=== PATIENT | male | born 1990 | race Caucasian/White ===

== ENCOUNTER 2019-12-26 03:34 | Emergency (ER) | payer SELFPAY ==
[2019-12-26 03:44] VITALS: BP 162/107; PULSE 105; RESP 16; TEMP 37; O2SAT 99; BMI 25.5
--- NOTE | 2019-12-26 03:47 | XRR_ITS ---
PROCEDURE INFORMATION: Exam: XR Right Foot Complete Exam date and time: 12/26/2019 4:02 AM Age: 29 years old Clinical indication: Injury or trauma; Injury history: Kicked box; Initial encounter; Sprain or strain; Foot; Right TECHNIQUE: Imaging protocol: XR Right foot. Views: 3 or more views. COMPARISON: No relevant prior studies available. FINDINGS: Bones/joints: Normal. Soft tissues: Normal. XR/XR foot RT min 3V* [id number] IMPRESSION: No acute findings.
--- NOTE | 2019-12-26 05:24 | PC.NURSE ---
Teaching completed on crutch use and home care of injury. Questions answered, good return demonstration. Patient knows not to drive while on pain medication.
--- NOTE | 2019-12-27 02:30 | ED_ITS ---
HPI - Extremity Problem General: Chief complaint: Extremity Injury, Lower Stated complaint: R FOOT INJURY Time Seen by Provider: 12/26/19 04:21 History of Present Illness: HPI Narrative: 29-year-old male presents after thrusting his foot out to kick something. He is experiencing pain across the dorsum and plantar surface of his midfoot. He complains of swelling as well. MD Complaint: extremity pain and joint pain Onset (ago): hour(s) Pain Consistency: constant Location: right Quality: burning and stabbing Radiation: none Associated symptoms: Deny fever(s) or rash Review of Systems Const: Denies: fever(s) Eyes: Denies: change in vision ENMT: Denies: change in hearing, epistaxis, post nasal drip or sinus pain Card: Reports: swelling of feet/ankles; Denies: irregular heart rhythm, dyspnea on exertion or orthopnea Resp: Denies: dyspnea, productive cough, non-productive cough or wheezing GI: Denies: abdominal pain, nausea or vomiting : Denies: difficulty urinating Musc: Denies: neck pain or back pain Skin/Breast: Denies: rash Neuro: Denies: headache(s) or dizziness Psych: Denies: anxiety PFSH ED PFSH: Social History Smoking and tobacco status: current every day smoker Physical Exam Const: GENERAL APPEARANCE: well developed ORIENTATION/CONSCIOUSNESS: Yes oriented to person, Yes oriented to place and Yes oriented to time HENMT: COMMON NORMALS: normocephalic, external ears normal and Normal external nose present HEAD & SCALP: normocephalic FACE & SINUS: normal facial exam NOSE: Normal external nose present and No nasal discharge present EXTERNAL EAR: Yes external ears normal MOUTH: tongue normal Eye: COMMON NORMALS: Equal, round and reactive pupils present, EOMs intact bilaterally and conjunctivae normal EYELID: eyelids normal CONJUNCTIVA: Yes conjunctivae normal PUPIL: Yes Equal, round and reactive pupils present Neck/C-Spine: GENERAL: No tracheal deviation Chest: COMMONS NORMALS: normal inspection of the chest CHEST: No tenderness Resp: COMMON NORMALS: clear to auscultation bilaterally EFFORT & INSPECTION: No tachypneic, No respiratory distress, No retractions, No uses accessory muscles and No tracheal deviation AUSCULTATION: clear to auscultation bilaterally, no rhonchi, no wheezes and lung sounds not diminished Cardio: COMMON NORMALS: regular rate and regular rhythm RATE: regular rate RHYTHM: regular rhythm HEART SOUNDS: no murmurs PERIPHERAL PULSES: radial pulses present GI: INSPECTION: No abdominal distension AUSCULTATION: No Hyperactive bowel sounds present and No Hypoactive bowel sounds present PALPATION: No Guarding due to palpation present (GI) and No Rigid due to palpation Extremity: NARRATIVE EXTREMITY EXAM: Right glass unloading equipment tender across the dorsum and plantar surface of the midfoot. There is no deformity. There is minimal swelling. No rash. Sensation is intact. Capillary refill is normal. Neuro: SENSORIUM/ORIENTATION: Yes oriented to person, Yes oriented to place and Yes oriented to time Psych: COMMON NORMALS: mental status grossly normal Skin: COMMON NORMALS: no rashes or lesions noted GENERAL SKIN EXAM: no rashes or lesions noted Course Vital Signs: Vital signs: Vital Signs Temperature 98.6 F 12/26/19 03:44 Pulse Rate 105 H 12/26/19 03:44 Respiratory Rate 16 12/26/19 03:44 Blood Pressure 162/107 12/26/19 03:44 Pulse Oximetry 99 12/26/19 03:44 MDM - Extremity (Nontraumatic) MDM Narrative: Medical decision making narrative: Is negative for fracture. Discharge Plan Discharge Patient Disposition: Home, Self-Care Clinical Impression: Sprain of foot, right Qualifiers: Encounter type: initial encounter Qualified Code(s): S93.601A - Unspecified sprain of right foot, initial encounter Condition: Stable Prescriptions: New ketorolac 10 mg tablet 10 mg PO TID PRN (Reason: pain) Qty: 10 RF: 0 Discharge Orders: Discharge Order (Routine); Ordered 12/26/19 Ordered By: Alvin Hernandez Discharge Diet: Usual diet Discharge Activity: Limit activity as instructed Patient Instructions: Foot Sprain (ED) Activity Restrictions/Additional Instructions: Use crutches for weightbearing, but you may begin to bear weight as tolerated. Wrap for swelling. Ice for pain and swelling frequently. Medication as directed. If not improving in 7 to 10 days, follow-up for an x-ray. Discharge Date/Time: 12/26/19 05:25 Coding Level of Care Code ED Private Duty Nurse for Rachel Chavez
== END 2019-12-26 05:25 | disposition home or self-care (01) ==
PROVIDERS: Emergency Provider Emergency Medicine
DX: S93.601A Unspecified sprain of right foot, initial encounter (principal); W22.8XXA Striking against or struck by other objects, initial encounter; F17.210 Nicotine dependence, cigarettes, uncomplicated
CPT/HCPCS: 12345; 73630; 99281; 99283; E0114

== ENCOUNTER → 2020-04-06 14:38 | Outpatient (BNVA) | payer OTHER, SELFPAY | PROVIDERS: Visit Provider Nurse Practitioner Family | DX: Z20.828 Contact with and (suspected) exposure to other viral communicable diseases (principal); J06.9 Acute upper respiratory infection, unspecified | CPT/HCPCS: 87635 ==

== ENCOUNTER → 2020-04-10 18:28 | Outpatient (BNVA) | payer OTHER, SELFPAY | PROVIDERS: Visit Provider Nurse Practitioner Family | DX: Z20.828 Contact with and (suspected) exposure to other viral communicable diseases (principal) | CPT/HCPCS: 87635 ==

== ENCOUNTER → 2024-04-22 15:58 | Outpatient (BNVA) | payer MEDICAID, SELFPAY | PROVIDERS: Visit Provider Student in an Organized Health Care Education/Training Program | DX: B19.20 Unspecified viral hepatitis C without hepatic coma (principal) | CPT/HCPCS: 36415; 81596; 86705; 86706; 86709; 86803; 87340; 87522 ==

== ENCOUNTER 2024-07-01 09:17 | Outpatient (CLI) | payer MEDICAID, SELFPAY ==
--- NOTE | 2024-07-01 09:30 | USR_ITS ---
PROCEDURE INFORMATION: Exam: US Abdomen; Limited Exam date and time: 07/01/2024 9:24 AM Age: 34 years old Clinical indication: Condition or disease; Other: Hep c; Additional info: Hep c, assess fro cirrhosis TECHNIQUE: Imaging protocol: Real time ultrasound of the abdomen with image documentation. Limited exam focused on the region of clinical interest. COMPARISON: No relevant prior studies available. FINDINGS: Liver: The liver is mildly enlarged measuring 18.4 cm. Mildly increased echogenicity of the liver. Coarsened echotexture of the liver. Mildly nodular contour of the liver. Gallbladder: The gallbladder is unremarkable. Biliary ducts: No intra or extrahepatic biliary ductal dilatation. Common bile duct measures 5 mm. Right kidney: The right kidney measures 11 cm. No hydronephrosis. US/US liver [id number] IMPRESSION: 1. Mild hepatomegaly with a coarsened echotexture and increased echogenicity . There is a mildly nodular contour of the liver. Findings are suggestive of a cirrhotic morphology of the liver. 2. No evidence of cholelithiasis or acute cholecystitis.
== END 2024-07-01 09:18 | disposition home or self-care (01) ==
PROVIDERS: PCP Student in an Organized Health Care Education/Training Program; Visit Provider Student in an Organized Health Care Education/Training Program
DX: B19.20 Unspecified viral hepatitis C without hepatic coma (principal); R16.0 Hepatomegaly, not elsewhere classified; R93.2 Abnormal findings on diagnostic imaging of liver and biliary tract
CPT/HCPCS: 76705

== ENCOUNTER → 2024-09-14 11:32 | Outpatient (BNVA) | payer MEDICAID, SELFPAY | PROVIDERS: PCP Student in an Organized Health Care Education/Training Program; Visit Provider Student in an Organized Health Care Education/Training Program | DX: B19.20 Unspecified viral hepatitis C without hepatic coma (principal) | CPT/HCPCS: 36415; 80053; 85025; 87522 ==

== ENCOUNTER 2024-09-29 11:10 | Day surgery (SDC) | payer MEDICAID, SELFPAY ==
[2024-09-29 11:58] VITALS: BP 117/72; PULSE 71; RESP 18; TEMP 36.7; O2SAT 99
[2024-09-29] MEDS: sodium chloride 0.9% 500 ML 15 ML IV (12:02)
--- NOTE | 2024-09-29 12:15 | W.PM.OPSUD ---
Surgery/Procedure H&P Update DATE OF PROCEDURE: September 29, 2024 DATE H&P PERFORMED: 09/14/24 H&P UPDATE INFORMATION: I have reviewed H&P completed within last 30 days, I have examined patient prior to procedure and No changes to prior documentation PLANNED PROCEDURE: Operation Date: 09/29/24 12:15 Proposed Procedures p EGD [id number] R12(Not Applicable) - Earnest Hansen MD
--- NOTE | 2024-09-29 12:17 | ANES.PREANE2 ---
Pre-Anesthetic Assessment Height/Weight: Height 1.93 m Weight 99.79 kg Temp Pulse Resp BP Pulse Ox O2 Del Method 98.0 F 71 18 117/72 99 Room Air 09/29/24 11:58 09/29/24 11:58 09/29/24 11:58 09/29/24 11:58 09/29/24 11:58 09/29/24 11:58 Preop Diagnosis: Cirrhosis Operation Date: 09/29/24 12:15 Proposed Procedures p EGD [id number] R12(Not Applicable) - Earnest Hansen MD Familial anesthetic complications: None Was Beta Yesi taken within 24 hours: N/A Was Clonidine taken within 24 hours: N/A Last intake: Intake Last Liquid Date 09/28/24 Last Liquid Time 22:30 Last Solid Date 09/28/24 Last Solid Time 22:30 Social No alcohol Quit ETOH 5 years ago Exam alert, oriented x 3, clear to auscultation bilaterally and regular rate & rhythm Airway Cervical ROM: within normal limits Mallampati: Class II Dentition: chipped Comments: Comments: Poor dentition Pulmonary None reported CV/HEM None reported None reported Hepatic Cirrhosis GI None reported Metabolic None reported Musc/skel None reported Neuropsych None reported Anesthetic Plan ASA status: 3 Anesthesia: MAC Risk of > 500 ml blood loss (7ml/kg in children): No Medications/Allergies Home Medications ?Medication ?Instructions ?Recorded ?Confirmed ?Last Taken ?Type ketorolac 10 mg tablet 10 mg PO TID PRN pain #10 tabs 12/26/19 09/29/24 09/28/24 Rx methadone 40 mg soluble tablet 40 mg PO DAILY 04/22/24 09/29/24 09/28/24 History omeprazole 40 mg capsule,delayed 40 mg PO QDAY 09/14/24 09/29/24 09/28/24 History release Allergies Allergy/AdvReac Type Severity Reaction Status Date / Time No Known Allergies Allergy Verified 09/14/24 10:43 Current Medications Generic Name Dose Route Start Last Admin Trade Name Freq PRN Reason Stop Dose Admin Sodium Chloride 500 mls @ 15 mls/hr 09/29/24 11:37 09/29/24 12:02 Sodium Chloride 0.9% IV 09/30/24 11:36 15 mls/hr .Q24H PRN Administration COLONOSCOPY FLUIDS PFSH Anesthesia Family History (Updated 09/14/24 @ 10:[address] Gonzalez) Father Cancer prostate Social History Smoking and tobacco/nicotine status: current every day tobacco/nicotine user Data Anesthesia Cardiac Studies: No Data to Display
[2024-09-29 13:17] VITALS: BP 102/69; PULSE 73; RESP 16; TEMP 36.1; O2SAT 96
[2024-09-29 13:29] VITALS: BP 102/71; PULSE 74; RESP 16; O2SAT 97
--- NOTE | 2024-09-29 13:40 | ANE.PACU2 ---
Inpatient post-anesthesia follow up: Airway intact: Yes Vital signs: Temperature 97 F Pulse Rate 74 Respiratory Rate 16 Blood Pressure 102/71 Pulse Oximetry 97 Oxygen Delivery Me thod Room Air Oxygen Flow Rate Fraction of Inspir ed Oxygen Hydration adequate: Yes Nausea and vomiting: No Pain level: 1 Mental status: Baseline
== END 2024-09-29 13:47 | disposition home or self-care (01) ==
PROVIDERS: PCP Student in an Organized Health Care Education/Training Program; Visit Provider Student in an Organized Health Care Education/Training Program
PROC: 0DJ08ZZ Inspection of Upper Intestinal Tract, Via Natural or Artificial Opening Endoscopic (ICD-10-PCS; principal; 2024-09-29 12:15)
DX: K29.50 Unspecified chronic gastritis without bleeding (principal); K29.80 Duodenitis without bleeding; F17.200 Nicotine dependence, unspecified, uncomplicated; Z79.899 Other long term (current) drug therapy
CPT/HCPCS: 43239; 88305; J2704; J7040

== ENCOUNTER 2024-10-01 07:21 | Outpatient (CLI) | payer MEDICAID, SELFPAY ==
--- NOTE | 2024-10-01 07:30 | US_ITS ---
WS: [id number] RIGHT UPPER QUADRANT ULTRASOUND HISTORY: liver cirrhosis COMPARISON: 07/01/2024 Liver: 17.2 cm in length. Liver remains top normal to slightly enlarged in size. The surface contour is slightly nodular but unchanged since the prior exam. No intrahepatic mass. No bile duct dilatation. Portal Vein: Normal hepatopetal flow with monophasic waveform. Gallbladder: Normally distended gallbladder with no stones or wall thickening. CBD: 0.5 cm Pancreas: Normal pancreatic head and body. Tail is obscured by bowel gas. Right kidney: 9.7 cm in length. Normal size and echogenicity. No hydronephrosis or mass. Aorta and IVC: Unremarkable abdominal aorta and IVC. No ascites. US/US liver [id number] IMPRESSION: 1. Early mild changes of cirrhosis. Similar to the prior study from 07/01/2024 . 2. No intrahepatic mass. 3. Negative gallbladder.
== END 2024-10-01 07:22 | disposition home or self-care (01) ==
LOC: RAD 07:22
PROVIDERS: PCP Student in an Organized Health Care Education/Training Program; Visit Provider Student in an Organized Health Care Education/Training Program
DX: B19.20 Unspecified viral hepatitis C without hepatic coma (principal); R93.2 Abnormal findings on diagnostic imaging of liver and biliary tract
CPT/HCPCS: 76705

== ENCOUNTER 2025-02-05 10:25 | Outpatient (CLI) | payer MEDICAID, SELFPAY ==
--- NOTE | 2025-02-05 10:45 | US_ITS ---
WS: [id number] RIGHT UPPER QUADRANT ULTRASOUND HISTORY: B19.20 - Unspecified viral hepatitis C without hepatic coma COMPARISON: 10/01/2024 Liver: 16.0 cm in length. Normal size liver and echogenicity. No bile duct dilatation or mass. Mild changes of cirrhosis are not quite as apparent on today's exam as on the prior study. There is very slight nodularity of the liver surface. Portal Vein: Normal hepatopetal flow with monophasic waveform. Gallbladder: Normally distended gallbladder with no stones or wall thickening. CBD: 0.7 cm Pancreas: Partially obscured. Right kidney: 11.0 cm in length. Normal size and echogenicity. No hydronephrosis or mass. Aorta and IVC: Unremarkable abdominal aorta and IVC. No ascites. US/US liver [id number] IMPRESSION: 1. Normal size liver. Minimal nodularity of the liver surface. Otherwise negat lazara. 2. Negative gallbladder.
== END 2025-02-05 10:26 | disposition home or self-care (01) ==
LOC: RAD 10:27
PROVIDERS: PCP Family Medicine; Visit Provider Student in an Organized Health Care Education/Training Program
DX: B19.20 Unspecified viral hepatitis C without hepatic coma (principal)
CPT/HCPCS: 76705

== ENCOUNTER 2025-03-24 09:55 | Outpatient (CLI) | payer OTHER, SELFPAY ==
--- NOTE | 2025-03-24 10:04 | XR_ITS ---
WS: [id number] Lumbar spine, 3 views, 03/24/2025 Clinical Data: LOW BACK PAIN Comparison: None. Findings: No compression fractures or subluxation is seen. No disc space narrowing is seen. The transverse processes and SI joints are normal. There is a levoscoliosis of the lumbar spine. XR/XR lumbar spine 2-3V* [id number] Impression: Levoscoliosis of the lumbar spine.
== END 2025-03-24 09:56 | disposition home or self-care (01) ==
LOC: RAD 09:57
PROVIDERS: PCP Family Medicine; Visit Provider Family Medicine
DX: M54.50 Low back pain, unspecified (principal); M41.86 Other forms of scoliosis, lumbar region
CPT/HCPCS: 72100

== ENCOUNTER 2025-05-15 05:00 | Outpatient (RCR) | payer MEDICAID, SELFPAY | END 2025-06-13 23:59 | disposition home or self-care (01) | LOC: SPT 05:00 | PROVIDERS: PCP Family Medicine; Visit Provider Anesthesiology Pain Medicine | DX: M54.50 Low back pain, unspecified (principal); G89.29 Other chronic pain | CPT/HCPCS: 97161 ==

== ENCOUNTER 2025-05-17 14:29 | Outpatient (CLI) | payer MEDICAID, SELFPAY ==
--- NOTE | 2025-05-17 14:37 | MR_ITS ---
WS: [id number] MRI LUMBAR SPINE NONCONTRAST HISTORY: THORACIC BACK PAIN/PARESTHESIA BILAT LEGS/LSPINE BACK PAIN COMPARISON: None available. TECHNIQUE: Sagittal and axial multisequence imaging is submitted. Mild increase in the lumbar lordosis. Disc spaces and vertebral body heights are well-preserved. Conus terminates normally at L1-2 disc level. L1-L2: Normal. L2-L3: Normal. L3-L4: Mild ligamentum flavum and facet arthritis. No stenosis. L4-L5: Mild annular disc bulging with mild ligamentum flavum and facet arthritis. Minimal encroachment upon the lateral recesses. No significant stenosis. L5-S1: Mild annular disc bulging with a central disc protrusion and annular fissure. Minimal encroachment upon the RIGHT S1 nerve root. No high-grade stenosis. Normal paravertebral soft tissues. MR/MR lumbar spine wo con* [id number] IMPRESSION: 1. No high-grade central or foraminal stenosis. 2. Small central disc protrusion with annular fissure at L5-S1. Very slight co ntact on the RIGHT S1 nerve root. 3. Mild disc encroachment upon the lateral recesses at L4-5 without stenosis.
--- NOTE | 2025-05-17 15:01 | MR_ITS ---
WS: [id number] MRI THORACIC SPINE noncontrast HISTORY: THORACIC BACK PAIN COMPARISON: None available. TECHNIQUE: Multiplanar sequences are performed in sagittal and axial planes. Mild increase in thoracic kyphosis centered at T8. 50% anterior wedging of T8. No marrow edema. T8 is a biconcave fracture. There is also very slight anterior wedging of T9. No acute fractures. No signal abnormality in the cord. T1-2: Normal. T2-3: Normal. T3-4: Moderate-sized LEFT paracentral disc protrusion contacts the LEFT lateral thoracic cord. T4-5: Normal. T5-6: Normal. T6-7: Mild bilateral facet arthritis. T7-8: Normal. T8-9: Shallow central disc protrusion with effacement of CSF. Mild disc contact on the cord. T9-10: Mild facet arthritis. T10-11: Mild facet arthritis. Slight LEFT foraminal stenosis. T11-12: Normal. Paravertebral soft tissues are normal. Small amount of debris in the esophagus. MR/MR thoracic spin wo con* [id number] IMPRESSION: 1. No acute thoracic spine fracture. 2. Remote 50% biconcave fracture at T8 without retropulsion. 3. Very minimal chronic anterior wedging of T9. 4. Moderate-sized LEFT paracentral disc protrusion at T3-4 with contact on the thecal sac and thoracic cord. 5. Small central disc protrusion at T8-9.
== END 2025-05-17 14:30 | disposition home or self-care (01) ==
LOC: RAD 14:30
PROVIDERS: PCP Family Medicine; Visit Provider Family Medicine
DX: M51.34 Other intervertebral disc degeneration, thoracic region (principal); M47.814 Spondylosis without myelopathy or radiculopathy, thoracic region; M47.816 Spondylosis without myelopathy or radiculopathy, lumbar region; M51.370 Other intervertebral disc degeneration, lumbosacral region with discogenic back pain only
CPT/HCPCS: 72146; 72148

== ENCOUNTER → 2025-06-03 08:46 | Outpatient (BNVA) | payer MEDICAID, SELFPAY | PROVIDERS: PCP Family Medicine; Visit Provider Orthopaedic Surgery | DX: S22.071A Stable burst fracture of T9-T10 vertebra, initial encounter for closed fracture (principal); X58.XXXA Exposure to other specified factors, initial encounter | CPT/HCPCS: 72072; 72110 ==

== ENCOUNTER 2025-06-14 05:00 | Outpatient (RCR) | payer MEDICAID, SELFPAY | END 2025-07-14 23:59 | disposition home or self-care (01) | LOC: SPT 05:00 | PROVIDERS: PCP Family Medicine; Visit Provider Anesthesiology Pain Medicine | DX: M54.50 Low back pain, unspecified (principal); G89.29 Other chronic pain | CPT/HCPCS: 97110 ==